=== PATIENT | female | born 1960 | race Caucasian/White ===

== ENCOUNTER → 2016-12-04 | Outpatient (CLI) | payer OTHER ==
--- NOTE | 2016-12-04 07:58 | MR ---
EXAMINATION TYPE: MR shoulder RT wo con DATE OF EXAM: 12/04/2016 7:16 AM COMPARISON: 11/09/2016 HISTORY: 55-year-old female unspecified sprain of the right shoulder, decreased range of motion TECHNIQUE: Multiplanar, multisequence imaging of the right shoulder is performed without contrast. FINDINGS: The long head biceps tendon appears intact and appropriately situated along the bicipital groove. There is borderline to mild thickening of the coracohumeral ligament which measures 4 mm thick, sagit jonathan T1 image 14. There is no soft tissue replacement in the rotator cuff interval. The subscapularis tendon is intact. Mild degenerative joint space narrowing with marginal spurring at the acromioclavicular joint. No sig nificant encroachment onto the subacromial space. There is minimal bursal sided fraying of the cuff at the junction of the supraspinatus and infraspina tus tendons, for example, coronal image 15. Otherwise, no discrete rotator cuff tear is identified. No muscle atrophy. No significant fluid within the subacromial/subdeltoid bursa. There is some irregular signal seen within the superior labrum at and just behind the biceps anchor, the coronal images 13 and 14. No paralabral cyst. Evaluation of the glenohumeral joint shows maintained articular cartilage with physiologic joint flui d. No Hill-Sachs deformity or os acromiale. No suspicious bone marrow replacement. IMPRESSION: 1. Minimal bursal sided fraying of the cuff at the junction of the supraspinatus and infraspinatus te ndons but otherwise without any rotator cuff tear. 2. Borderline to mild thickening of the coracohumeral ligament could reflect a mild biceps shantel spr ain. There is no fransisco thickening of the axillary recess or soft tissue replacement in the rotator cu ff interval to help support adhesive capsulitis at this time. Clinically correlate. 3. Findings suggest a SLAP tear. 4. Mild AC joint osteoarthrosis.
== END | disposition home or self-care (01) ==
LOC: RADMRIMAIN 06:24
PROVIDERS: ATTEND Emergency Medicine
DX: M19.011 Primary osteoarthritis, right shoulder (principal)

== ENCOUNTER → 2016-12-06 | Outpatient (CLI) | payer OTHER ==
--- NOTE | 2016-12-06 09:51 | XR ---
EXAMINATION TYPE: XR wrist complete RT DATE OF EXAM: 12/06/2016 9:41 AM COMPARISON: NONE HISTORY: Sprain, pain, fall one month prior TECHNIQUE: 4 views right wrist FINDINGS: No acute fractures are evident. Some mild soft tissue swelling may be present. Joint spaces appear preserved. IMPRESSION: 1. Mild soft tissue swelling
== END | disposition home or self-care (01) ==
LOC: RADXRMAIN 09:23
PROVIDERS: ATTEND Emergency Medicine
DX: R22.31 Localized swelling, mass and lump, right upper limb (principal); S63.501D Unspecified sprain of right wrist, subsequent encounter; W01.0XXD Fall on same level from slipping, tripping and stumbling without subsequent striking against object, subsequent encounter

== ENCOUNTER 2017-01-15 10:42 | Day surgery (SDC) | payer OTHER ==
[2017-01-11 10:14] VITALS: BMI 20.7
[~2017-01-15 10:42] MED LIST: DEXAMETHASONE SOD PHOSPHATE 10 MG/ML 1 ML VIAL IV ONE; HYDROmorphone 1 MG/ML 1 ML SYRINGE IVP PRN; MIDAZOLAM 2 MG/2 ML VIAL IV PRN; ONDANSETRON 4 MG/2 ML VIAL IVP ONE; Pre Op ABX Message 1 EACH MISC MISCELLANE ONE; SCOPOLAMINE 1.5MG/72HR PATCH TRANSDERM ONE; ceFAZolin 2 GM in SODIUM CHLORIDE 0.9% 100 ML IVPB ONE
[2017-01-15] MEDS ORDERED: LIDOCAINE 1% 20 ML VIAL (10MG/ML) FOR IV START INTRADERMA ONE (11:13)
[2017-01-15] MEDS: LACTATED RINGERS 1,000 ML IV SCH ×3 (11:20→23:43)
[2017-01-15] MEDS ORDERED: ePHEDrine 50 MG/ML 1 ML AMP ONE (12:23)
[2017-01-15] MEDS ORDERED: fentaNYL (PF) 50 MCG/ML 2 ML AMP ONE (12:23)
[2017-01-15] MEDS ORDERED: PROPOFOL 10 MG/ML 20 ML VIAL IV ONE (12:23)
[2017-01-15] MEDS ORDERED: SUCCINYLCHOLINE CHLORIDE 100 MG/5 ML SYR IV ONE (12:23)
[2017-01-15] MEDS ORDERED: MIDAZOLAM 2 MG/2 ML VIAL ONE (12:23)
[2017-01-15] MEDS ORDERED: LIDOCAINE 1% INJ 10MG/ML (20 ML MDV) ONE (12:23)
[2017-01-15] MEDS ORDERED: LACTATED RINGERS 1,000 ML IV ONE (13:15)
[2017-01-15 13:45] VITALS: RESP 16
[2017-01-15] MEDS ORDERED: ONDANSETRON 4 MG/2 ML VIAL IVP PRN (13:45)
[2017-01-15] MEDS ORDERED: HYDROcodone/APAP 5-325MG 1 EACH TAB PO PRN (13:45)
[2017-01-15] MEDS ORDERED: HYDROmorphone 1 MG/ML 1 ML SYRINGE IVP PRN ×3 (13:45)
[2017-01-15] MEDS ORDERED: hydrOXYzine PAMOATE 25 MG CAP PO PRN (13:45)
[2017-01-15] MEDS ORDERED: diphenhydrAMINE 25 MG CAP PO PRN (13:45)
[2017-01-15] MEDS ORDERED: ACETAMINOPHEN TAB 325 MG TAB PO PRN (20:00)
[2017-01-15] MEDS: HYDROcodone/APAP 5-325MG 1 EACH TAB PO PRN (20:14)
[2017-01-15] MEDS: ceFAZolin 2 GM in SODIUM CHLORIDE 0.9% 100 ML IVPB SCH (20:14)
[2017-01-15] MEDS ORDERED: SENNOSIDES-DOCUSATE SODIUM 1 EACH TAB PO PRN (21:00)
[2017-01-15] MEDS ORDERED: MONTELUKAST 10 MG TAB PO SCH (21:00)
[2017-01-15] MEDS: PANTOPRAZOLE 40 MG TABLET PO SCH (21:17)
[2017-01-16] MEDS: HYDROcodone/APAP 5-325MG 1 EACH TAB PO PRN ×2 (01:14→06:45)
[2017-01-16] MEDS: LACTATED RINGERS 1,000 ML IV SCH ×3 (02:04→10:23)
[2017-01-16] MEDS: ceFAZolin 2 GM in SODIUM CHLORIDE 0.9% 100 ML IVPB SCH (03:18)
[2017-01-16] MEDS ORDERED: LEVOTHYROXINE 75 MCG TAB PO SCH (06:30)
[2017-01-16 07:54] VITALS: BP 115/67; PULSE 67; TEMP 97.8
[2017-01-16] MEDS: PANTOPRAZOLE 40 MG TABLET PO SCH (08:59)
[2017-01-16] MEDS ORDERED: PARoxetine 10 MG TAB PO SCH (09:00)
[2017-01-16] MEDS ORDERED: HYDROcodone/APAP 7.5-325MG 1 EACH TAB PO PRN ×2 (09:56)
--- NOTE | 2017-01-16 10:00 | P.DS ---
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 The patient presented to the orthopedic office for evaluation. After discussion and consideration patient elects to proceed with a rotator cuff repair. The patient is seen preoperatively by her primary care physician and cleared for surgery. Patient is admitted to observation at [facility] on 01/15/2017 for right shoulder rotator cuff repair with distal clavicle excision and acromioplasty. The procedures performed without complication or sequelae. The patient is doing well postoperatively. Labs and vital signs are stable on day of discharge. On day of discharge patient's shoulder incision is healing well. There is minimal erythema. There is no drainage noted at this time. There is minimal soft tissue swelling to the right upper extremity. Patient has full hand, wrist , and elbow motion without difficulty or pain. Neurovascular status to the right upper extremity is intact. Patient is discharged to home in good condition. Patient Condition at Discharge: Stable Plan - Discharge Summary New Discharge Prescriptions: HYDROcodone/APAP 7.5-325MG [[place]que 7.5-325] 1 - 2 tab PO Q4-6H PRN #60 tab PRN Reason: Pain Sennosides-Docusate Sodium [Senokot-S] 2 tab PO DAILY #30 tablet Discharge Medication List Levothyroxine Sodium [Synthroid] 75 mcg PO DAILY 03/19/15 [History] Montelukast [Singulair] 10 mg PO HS 03/19/15 [History] RABEprazole SODIUM [Aciphex] 20 mg PO BID 03/19/15 [History] Acetaminophen Tab [Tylenol Tab] 650 mg PO Q4H PRN 01/11/17 [History] PARoxetine [Paxil] 10 mg PO DAILY 01/11/17 [History] HYDROcodone/APAP 7.5-325MG [De [place]que 7.5-325] 1 - 2 tab PO Q4-6H PRN #60 tab [Rx] Sennosides-Docusate Sodium [Senokot-S] 2 tab PO DAILY #30 tablet 01/16/17 [Rx] Follow up Appointment(s)/Referral(s): Scot Benton DO [Doctor of Osteopathic Medicine] - 10 Days Activity/Diet/Wound Care/Special Instructions: Keep incision clean and dry Change dressing daily May shower in 3 days if no drainage from incision Keep arm sling/abductor pillow in place except when bathing Follow up with Dr. Benton in 10 days Call [facility] with any questions or concerns. [phone] Discharge Disposition: HOME SELF-CARE
--- NOTE | 2017-01-16 11:43 | CONS ---
DATE OF CONSULTATION: 01/15/2017 REASON FOR CONSULTATION: Medical management requested by Dr. Benton. CONSULTATION: This is a 56-year-old patient of Dr. Pollard who slipped on ice on November 01 sustaining injury to the right shoulder and questionable hairline fracture to the right wrist. The patient had been using a brace. The patient did undergo rotator cuff injury. Underwent surgery for a rotator cuff today. Post procedure right arm is in a sling. Patient's chronic stable medical conditions that include GERD, hypothyroid, no nausea or vomiting. REVIEW OF SYSTEMS: CONSTITUTIONAL: Tired. HEENT: None. CARDIOVASCULAR: None. RESPIRATORY : none. GASTROINTESTINAL: None. MUSCULOSKELETAL: As above. Dermatological: None. HEMATOLOGICAL: None. LYMPHATIC: None. PSYCHIATRY: Anxiety. NEUROLOGICAL: None. Past history medical history of GERD and hypothyroid. PAST SURGICAL HISTORY: Left ovary removal, vocal cord surgery. PAST PSYCHIATRY HISTORY: Anxiety. SOCIAL HISTORY: The patient smoked for close to 30 years at 1/2 packs a day; stopped in 2006. . The patient is employed. FAMILY HISTORY: Cancer. HOME MEDICATIONS: 1. ( ) 1 mg b.i.d. 2. Paxil 10 mg daily. 3. Singulair 10 mg q.h.s. 4. Synthroid 75 mcg a day. 5. Tylenol. ALLERGIES: None. On examination, temperature 98.7, pulse 73, respirations 16, blood pressure 100/57, pulse ox 96% on room air. GENERAL APPEARANCE: Thin build, lying in bed, awake. EYES: Pupils equal, conjunctivae normal. HEENT: Oral cavity normal. NECK: JVD not raised. Mass not palpable. RESPIRATORY: Effort normal. LUNGS: Decreased breath sounds. CARDIOVASCULAR: First and second sounds normal. No edema. ABDOMEN: Soft, nontender. Liver and spleen not palpable. LYMPHATIC: No lymph nodes palpable in neck or axillae. PSYCHIATRY: Alert and oriented x3. Mood and affect normal. EXTREMITIES: Right shoulder in a dressing. Right arm in a sling. The patient has got sensations in the right hand. INVESTIGATIONS: No blood work present. ASSESSMENT: 1. Right rotator cuff injury with repair. 2. Anxiety not otherwise specified. 3. Hypothyroidism. 4. Gastroesophageal reflux disease. PLAN: Home medications will be resumed. The patient getting IV fluids. Venodyne boots for DVT prophylaxis. Care was discussed with the patient. Patient to follow-up with the family doctor upon discharged. Thank you, Dr. Benton. Copy to Dr. Pollard
--- NOTE | 2017-01-17 17:43 | OP ---
DATE OF SERVICE: 01/15/2017 SURGEON: YASH TORRE DO DEICER REPAIRER: SHEFALI SANCHEZ PA-C PREOPERATIVE DIAGNOSES: 1. Torn right rotator cuff. 2. Sprained right rotator cuff. POSTOPERATIVE DIAGNOSES: 1. Sprained right rotator cuff. 2. Partial tear of right rotator cuff OPERATION: Resection of distal right clavicle, decompression acromioplasty and rotator cuff repair utilizing bioabsorbable Arthrex anchor. ANESTHESIA: ESTIMATED BLOOD LOSS: SPECIMENS REMOVED: COMPLICATIONS: OPERATIVE FINDINGS: DESCRIPTION OF PROCEDURE: Patient was taken to the operative suite and placed in supine position. Regional anesthesia had been performed per Anesthesiology in the perioperative area. The patient was placed in beach-chair position, padded and secured. Betadine prep was carried out over the right shoulder. Sterile drapes were applied in the usual manner. A small minimally invasive anterolateral incision was developed over the acromion. Sharp dissection through the subcutaneous tissues was performed. Superior acromioclavicular ligament was than dissected. The distal 1cm of the clavicle was excised with a bone saw. The anterior deltoid muscle was dissected along the musculotendinous junction of the anterolateral acromion. An anterolateral decompression acromioplasty was performed. The tear of the rotator cuff was visualized. The acromion was shaped with bone saw and bone rasp. Resection of the rotator cuff was carried out and at the critical junction of the tuberosity head. Area was irrigated. The deltoid was reapproximated back into the acromion with #1 Ethibond suture. The deep fascia was approximated with #1 Vicryl suture in running fashion. The subcutaneous tissue was approximated with 2-0 Vicryl suture in interrupted fashion. Skin was approximated with 3-0 Quill suture in subcuticular fashion. Skin was sealed with Dermabond. A sterile dressing was applied. Patient was placed in an abductor pillow splint and transferred to the recovery room in satisfactory postoperative condition. GROSS PATHOLOGY: There was evidence of partial tearing of the rotator cuff, the supraspinatus tendon and peripheral tuberosity. There was evidence of hypertrophy of the subacromial bursa at this time also. [facility]
== END 2017-01-16 15:02 | disposition home or self-care (01) ==
LOC: OR 10:42 → 3SUR 13:11 → OR 01-16 15:02
PROVIDERS: ATTEND Orthopaedic Surgery
DX: S46.011A Strain of muscle(s) and tendon(s) of the rotator cuff of right shoulder, initial encounter (principal); M75.41 Impingement syndrome of right shoulder; E03.9 Hypothyroidism, unspecified; K21.9 Gastro-esophageal reflux disease without esophagitis; F41.9 Anxiety disorder, unspecified; Z87.891 Personal history of nicotine dependence; Z79.899 Other long term (current) drug therapy; W00.2XXA Other fall from one level to another due to ice and snow, initial encounter; Y92.89 Other specified places as the place of occurrence of the external cause
CPT/HCPCS: 23410; 23120; 64415; J2250; J1100; J0690 ×2; J2405; J2001; J3010; J0330; J2704

== ENCOUNTER → 2019-04-14 | Outpatient (CLI) | payer OTHER ==
--- NOTE | 2019-04-14 22:44 | MR ---
EXAMINATION TYPE: MR shoulder RT wo con DATE OF EXAM: 04/14/2019 COMPARISON: Prior MRI December 04, 2016. HISTORY: Rt shoulder pain x 3 yrs, hx surgery 2017 TECHNIQUE: Multiplanar, multisequence imaging of the right shoulder is performed without contrast. FINDINGS: Rotator Cuff: Surgically repaired rotator cuff shows no recurrent full-thickness tear. Rotator cuff m uscle bulk is preserved. Subscapularis tendon is felt intact. Acromioclavicular Joint: Evidence of prior surgery with susceptibility artifact at acromioclavicular joint. Downsloping distal clavicle noted. Glenohumeral Joint: Moderate narrowing with moderate glenohumeral joint effusion. No significant spur ring. Labrum: The superior labrum shows increased signal consistent with degenerative tear. Biceps Tendon: The long head of biceps is in normal location within bicipital groove. Bone marrow signal: No focal abnormal marrow signal is appreciated. Other: No additional significant abnormality is appreciated. IMPRESSION: No recurrent rotator cuff tear. Interval surgery to AC joint and rotator cuff noted. Pers istent SLAP tear and moderate glenohumeral joint arthropathy.
== END | disposition home or self-care (01) ==
LOC: RADMRIMAIN 16:59
PROVIDERS: ATTEND Orthopaedic Surgery Sports Medicine
DX: S43.431A Superior glenoid labrum lesion of right shoulder, initial encounter (principal); M19.011 Primary osteoarthritis, right shoulder

== ENCOUNTER → 2023-10-01 | Outpatient (CLI) | payer BC ==
--- NOTE | 2023-10-01 09:44 | CT ---
EXAMINATION TYPE: CT soft tissue neck w con CT DLP: 330.9 mGycm, Automated exposure control for dose reduction was used. DATE OF EXAM: 10/01/2023 9:13 AM COMPARISON: 08/28/2014. 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 Axial sections with coronal and sagittal reformats were obtained. Contrast used:100 mL of Isovue 300 with IV Contrast, (None if empty) Oral contrast used: (None if empty) FINDINGS: Brain: Visualized portions are grossly unremarkable. Orbits: Unremarkable Sinuses: Grossly unremarkable. Spaces of the neck: Clear and symmetric. There is vocal cord medialization device (Madsen Silasti c implant ) within the left side of the larynx at the level of vocal cords. Focal cords appear rather symmetric with this device in place. Otherwise the Larynx appears symmetrical without evidence for m ass. Musculoskeletal: No acute osseous pathology. Degenerative disc disease changes of the visualized spin e are present. Lymph nodes: Multiple nonenlarged lymph nodes are seen along both anterior chains of the neck. Vascular structures: Visualized major arteries are patent without evidence of aneurysm. The vertebral and carotid systems are patent without evidence for hemodynamically significant stenosis. Thoracic Inlet/airway: Airway is patent. Right upper lung calcified granuloma. No evidence for mass w ithin the mediastinum near the aortic arch. Soft tissues/Thyroid: Thyroid and remainder of the soft tissues are unremarkable. Other: none. IMPRESSION No evidence for mass. Suspected surgical device (Madsen Silastic implant ) at the level of the vo kylie cords on the left, otherwise the larynx appears symmetrical. No lymphadenopathy.
== END | disposition home or self-care (01) ==
LOC: RADCTMAIN 08:22
PROVIDERS: ATTEND Otolaryngology
DX: J38.01 Paralysis of vocal cords and larynx, unilateral (principal)
CPT/HCPCS: 70491; Q9967